=== PATIENT | male | born 1990 | race Caucasian/White ===

== ENCOUNTER 2020-10-08 15:26 | Emergency (ER) | payer OTHER ==
[~2020-10-08 15:26] MED LIST: ZOFRAN ODT 4 MG4 MG SL
[2020-10-08] MEDS ORDERED: VALACYCLOVIR1000 MG PO (17:46)
[2020-10-08] MEDS ORDERED: MEDROL4 MG PO (17:46)
== END 2020-10-08 18:29 | disposition home or self-care (01) ==
LOC: ER1 15:26
DX: G51.0 Bell's palsy (principal); F17.200 Nicotine dependence, unspecified, uncomplicated; Z88.0 Allergy status to penicillin
CPT/HCPCS: 70450; 99284

== ENCOUNTER 2021-03-26 23:09 | Emergency (ER) | payer OTHER ==
[~2021-03-26 23:09] MED LIST changes: +MEDROL4 MG PO; +VALACYCLOVIR1000 MG PO
[2021-03-27] MEDS ORDERED: PERCOCET 5/325 T1 EA PO (02:00)
== END 2021-03-27 02:53 | disposition home or self-care (01) ==
LOC: ER1 23:09
DX: S22.41XA Multiple fractures of ribs, right side, initial encounter for closed fracture (principal); Z88.0 Allergy status to penicillin; W19.XXXA Unspecified fall, initial encounter
CPT/HCPCS: 71111; 99283; J1885